=== PATIENT | male | born 1955 | race Caucasian/White ===

== ENCOUNTER → 2018-10-20 | Outpatient (CLI) | payer BC ==
[2014-07-22 12:32] VITALS: BP 137/82
--- NOTE | 2018-10-20 16:33 | KCIC ---
2 view right wrist study Clinical indications: Chronic right wrist pain after a fall 5 months ago. FINDINGS: No acute fracture or dislocation or osteolytic process is evident. There is widening of the scaphoid lunate joint space which may be seen with a scaphoid lunate ligament tear. There is significant loss of the joint space of the radial scaphoid joint compartment consistent with severe degenerative osteoarthritis of this joint compartment. There is mild primary degenerative osteoarthritis of the first carpal metacarpal joint. IMPRESSION: Primary degenerative osteoarthritis as discussed above. Scaphoid lunate ligament tear. Electronically signed by: Brien Velez MD (10/20/2018 4:30 PM) [id number]
== END | disposition home or self-care (01) ==
LOC: KCIC 13:22
PROVIDERS: ATTEND Nurse Practitioner Family
DX: S63.591A Other specified sprain of right wrist, initial encounter (principal); M19.031 Primary osteoarthritis, right wrist; W19.XXXA Unspecified fall, initial encounter; Y93.89 Activity, other specified; Y92.89 Other specified places as the place of occurrence of the external cause; Y99.8 Other external cause status
CPT/HCPCS: 73100

== ENCOUNTER → 2019-06-16 | Outpatient (CLI) | payer BC ==
[2014-07-22 12:32] VITALS: BP 137/82
--- NOTE | 2019-06-16 11:03 | KCIC ---
Chest radiograph 06/16/2019 12:00 AM INDICATION: Right-sided chest pain with worsening shortness of breath COMPARISON: CT chest June 24, 2016 TECHNIQUE: Frontal and lateral views of the chest are provided. FINDINGS: The cardiomediastinal silhouette is within normal limits. There are no pleural effusions. There is no pulmonary vascular congestion. There is no pneumothorax. The lungs are clear. There is a calcified granuloma in the left midlung measuring 6 mm. No significant osseous abnormality is identified. IMPRESSION: No acute cardiopulmonary process. Electronically signed by: Chanell Reynoso MD (06/16/2019 10:59 AM) [id number]
== END | disposition home or self-care (01) ==
LOC: KCIC 09:30
PROVIDERS: ATTEND Nurse Practitioner Family
DX: J84.10 Pulmonary fibrosis, unspecified (principal)
CPT/HCPCS: 71046

== ENCOUNTER → 2021-09-03 | Outpatient (CLI) | payer BC ==
[2014-07-22 12:32] VITALS: BP 137/82
--- NOTE | 2021-09-03 11:23 | KCIC ---
AP and Lateral Views of the Chest 09/03/2021 10:05 AM Indication: Reason: Headache, cough, body aches. / Comparison: Chest radiograph June 16, 2019 Findings: There is no focal consolidation or infiltrate identified. The cardiomediastinal silhouette is within normal limits. There is no evidence of pneumothorax or pleural effusion. No acute osseous a bnormalities are identified. Impression: No evidence of acute cardiopulmonary process. Electronically signed by: Gareth Friend MD (09/03/2021 11:20 AM) [id number]
--- NOTE | 2021-09-03 12:41 | KCIC ---
MRI BRAIN WO History:Reason: SEVERE HEADACHE / Spl. Instructions: / History: Bad sharp's for 6-12 months, nausea. Technique: Multiplanar, multi sequential MR imaging was performed of the brain without contrast. Comparison: None Findings: Mild motion degraded evaluation. No acute infarct. No intracranial hemorrhage. No mass effect. No hydrocephalus. Mild brain parenchymal volume loss. Mild foci of FLAIR hyperintensities within the hemispheric white matter, most often due to chronic microvascular ischemia. Imaged orbits are unremarkable. Left sphenoid sinus mucosal thickening. Mastoid air cells are clear. Impression: 1. No acute intracranial abnormality. Electronically signed by: Josué Freitas DO (09/03/2021 12:39 PM) [facility] [place]
--- NOTE | 2021-09-03 15:20 | KCIC ---
EXAMINATION: MRI LEFT LOWER EXTREMITY JOINT WITHOUT INDICATIONS: Left knee pain and intermittent swelling for one year. TECHNIQUE: Multiplanar multisequence MRI of the left knee was obtained without contrast. COMPARISON: None. FINDINGS: MENISCI: There is a complex degenerative tear of the body medial meniscus with displaced meniscal ti ssue in the inferior medial recess and minimal remaining meniscal body tissue. The tear extends to th e free edge of the body posterior horn junction. There is a degenerative horizontal tear of the poste rior horn-root junction lateral meniscus with irregular appearance of the posterior root, which may r eflect partial tearing. LIGAMENTS: The anterior and posterior cruciate ligaments are intact. The medial collateral ligament and lateral collateral ligament complex are intact. A few small cysts deep to the proximal MCL may be sequela of old injury. EXTENSOR MECHANISM: The quadriceps and patellar tendons are intact. Fat pads are normal. Retinacula are intact. BONES AND CARTILAGE: There is deep partial thickness cartilage loss along the weightbearing medial f emoral condyle and full-thickness cartilage loss in the outer weightbearing medial tibial plateau wit h mild subchondral marrow edema in the tibial plateau. Superficial partial-thickness cartilage loss i n the lateral compartment. There is mild scattered superficial and deep partial-thickness cartilage l oss in the patellofemoral compartment with small subchondral cysts. There are small tricompartmental osteophytes and intercondylar notch osteophytes. No acute fracture. OTHER: There is fluid with small loose bodies and debris in the popliteus tendon sheath. Small joint effusion. Small [place] cyst. Muscles and remaining tendons are intact. IMPRESSION: 1. Complex degenerative tear of the body medial meniscus with displaced tissue in the inferior medial recess. 2. Degenerative horizontal tear of the posterior root-horn junction lateral meniscus. 3. Tricompartmental cartilage loss, greatest in the medial compartment where there is deep partial an d full-thickness cartilage loss. 4. Small joint effusion. Fluid in the popliteus tendon sheath containing loose bodies and debris. Electronically signed by: Sharyn Oliva MD (09/03/2021 3:17 PM) [id number]
== END ==
LOC: KCIC MRI 10:00
PROVIDERS: ATTEND Nurse Practitioner Family
DX: S83.232A Complex tear of medial meniscus, current injury, left knee, initial encounter (principal); M25.78 Osteophyte, vertebrae; M25.461 Effusion, right knee; M67.864 Other specified disorders of tendon, left knee; R51.9 Headache, unspecified; I67.82 Cerebral ischemia; X58.XXXA Exposure to other specified factors, initial encounter; Y93.89 Activity, other specified; Y92.89 Other specified places as the place of occurrence of the external cause; Y99.8 Other external cause status
CPT/HCPCS: 70551; 71046; 73721

== ENCOUNTER → 2022-02-04 | Outpatient (CLI) | payer BC ==
[2014-07-22 12:32] VITALS: BP 137/82
--- NOTE | 2022-02-04 09:46 | KCIC ---
Examination: CT pelvis without contrast HISTORY: History of left hip, groin pain COMPARISON: None available TECHNIQUE: Axial CT images of the pelvis were performed without contrast. Coronal and sagittal reform ats are performed Exposure: One or more of the following individualized dose reduction techniques were utilized for thi s examination: 1. Automated exposure control 2. Adjustment of the mA and/or kV according to patient size 3. Use of iterative reconstruction technique FINDINGS: Left total hip arthroplasty changes limits evaluation. There is no obvious acute fracture i dentified. Urinary bladder is mildly distended. Partially visualized anterior abdominal wall hernia i dentified containing fat. The neck of the hernia measuring 4.3 cm in transverse dimension. Urinary bl adder is mildly distended IMPRESSION: 1. Left total hip arthroplasty changes limits evaluation. No obvious acute fracture identified. 2. Partially visualized anterior abdominal wall hernia containing fat. Electronically signed by: Evan Cuellar MD (02/04/2022 9:44 AM) [id number]
== END ==
LOC: KCIC CT 08:56
PROVIDERS: ATTEND Nurse Practitioner Family
DX: K43.9 Ventral hernia without obstruction or gangrene (principal); N32.89 Other specified disorders of bladder; M25.552 Pain in left hip; Z96.642 Presence of left artificial hip joint
CPT/HCPCS: 72192